=== PATIENT | female | born 1955 | race Caucasian/White ===

== ENCOUNTER → 2020-01-09 15:03 | Outpatient (CLI) | payer BC, SELFPAY ==
--- NOTE | ~2020-01-09 | US_ITS ---
EXAMINATION: US transvaginal DATE: 01/09/2020 15:30 INDICATION: Postmenopausal bleeding. Comparison:No prior studies for comparison. TECHNIQUE: Multiple transabdominal and endovaginal sonographic images of the pelvis performed. FINDINGS: The uterus measures 9.4 x 4.8 x 6.5 cm. The endometrial complex measures 1.9 cm with hetero geneous appearance. There are multiple small hypoechoic masses in the uterus, likely uterine fibroids measuring up to 1.8 cm. The ovaries are not visualized. There is no free fluid in the pelvis. There are no abnormal masses seen on either side. IMPRESSION: 1. Thickened endomtrial complex. The differential diagnosis includes endometrial hyperplasia, polyp a nd carcinoma. Biopsy is recommended. Reviewed, dictated and finalized at location A. IMPRESSION: 1. Thickened endomtrial complex. The differential diagnosis includes endometria l hyperplasia, polyp and carcinoma. Biopsy is recommended.
== END ==
PROVIDERS: Visit Provider Nurse Practitioner
DX: N95.0 Postmenopausal bleeding (principal)
CPT/HCPCS: 76830

== ENCOUNTER → 2020-01-17 09:32 | Outpatient (REF) | payer BC, SELFPAY | LOC: ANHLAB 09:32 | PROVIDERS: Visit Provider Nurse Practitioner | DX: D49.2 Neoplasm of unspecified behavior of bone, soft tissue, and skin (principal) | CPT/HCPCS: 88305 ==

== ENCOUNTER 2020-06-22 15:38 | Outpatient (CLI) | payer BC, SELFPAY ==
--- NOTE | ~2020-06-22 | XR_ITS ---
EXAMINATION: XR chest 2V 06/22/2020 15:58 INDICATION: Shortness of breath with exertion. COPD. Asthma. PROCEDURE: 2 view chest COMPARISON: 06/27/2017 FINDINGS: The lungs are clear. The cardiomediastinal silhouette is within normal limits. There are no pleural effusions. There is no pneumothorax suspected. IMPRESSION: 1: NO ACUTE CARDIOPULMONARY DISEASE. Reviewed, dictated and finalized at location A. 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
== END 2020-06-22 15:39 | disposition home or self-care (01) ==
LOC: ANHIMG 15:44
PROVIDERS: Visit Provider Nurse Practitioner Family
DX: R06.02 Shortness of breath (principal)
CPT/HCPCS: 71046

== ENCOUNTER 2020-08-01 08:01 | Outpatient (CLI) | payer BC, SELFPAY ==
--- NOTE | 2020-08-03 12:46 | WPDPFTINT ---
PFT Interpretation PFT Interpretation: This PFT met all criteria for ATS standards and reproducibility FEV/FVC 72% FEV1 100% FVC 94% FEF 25-75% 55% TLC 102% RV112% RV/TLC 42% DLCO 67% when adjusted for alveolar volume but not adjusted for hemoglobin Flow volume loops showed some expiratory coving Impression: Probable mild small airflow obstruction with mildly decreased diffusion capacity. This pattern may be suggestive of asthma or COPD. Clinical correlation is advised.
== END 2020-08-01 08:02 | disposition home or self-care (01) ==
PROVIDERS: Visit Provider Nurse Practitioner Family
DX: J44.9 Chronic obstructive pulmonary disease, unspecified (principal); J45.909 Unspecified asthma, uncomplicated
CPT/HCPCS: 94060; 94726; 94729

== ENCOUNTER 2020-08-28 08:00 | Outpatient (CLI) | payer BC, SELFPAY ==
--- NOTE | ~2020-08-28 | NM_ITS ---
EXAMINATION: NM stress w perf spect multi EXAM DATE: 08/28/2020 11:50 INDICATION: R06.00 - Dyspnea, unspecified. Ischemic chest pain. TECHNIQUE: Rest images were obtained following intravenous administration of 9.8 mCi Tc99m tetrofosmi n (Myoview). The patient was infused intravenously with Lexiscan (regadenoson). Then, 28.9 mCi Tc99m tetrofosmin (Myoview) was administered intravenously, and stress images were obtained. Data was recon structed into short axis and horizontal and vertical long axis SPECT images. Gated SPECT images were also obtained. Correlation is made to chest x-ray 06/22/2020. FINDINGS: There is no reversible or fixed perfusion abnormality to suggest ischemia or infarction. Th ere is normal left ventricular wall motion. End diastolic volume: 92 mL. End-systolic volume: 31 mL. Left ventricular ejection fraction: 66%. IMPRESSION: 1. Normal myocardial perfusion at rest and during stress. 2. Left ventricular ejection fraction measuring 66%. Reviewed, dictated and finalized at location B. RER ELECTROPLATING
--- NOTE | 2020-08-28 08:12 | EST_ITS ---
Patient Info Name: Bernie Olivera Age: 64 years : 1955 Gender: Female Ht: 62 in Wt: 249 lbs BSA: 2.29 m2 Exam Date: 08/28/2020 9:20 AM Exam Location: [facility] Stress Patient Status: Outpatient Admit Date: 08/28/2020 Staff Ordering Physician: Feroz Turpin APRN Attending Provider: Feroz Turpin APRN Exercise Technologist: Cathleen Cuellar RDCS Exercise Physician: Alex Harley DO Exam Type: CA stress test treadmill w NM Study Info Indications R06.02 - Shortness of breath R07.9 - Chest pain, unspecified A nuclear stress test was performed. Summary 1. 1. Negative Derick exercise stress test for ischemic ST changes by ECG criteria. 2. 2. Reduced functional capacity, achieving 4.7 METs of workload. 3. 3. Appropriate HR response to exercise. 4. 4. Appropriate HR recovery at 1 minute post exercise. 5. 5. Nuclear scan to follow and will be reported separately. Please correlate with it. 6. 6. Patient informed of the above results. Protocol: Derick Stress ECG Details Stage: REST Duration (min): 7 min : 42 sec Speed (mph): 0.0 Grade (%): 0 HR (bpm): 67 SBP (mmHg): 128 DBP (mmHg): 85 METS: --- Stage: REST Duration (min): 12 min : 17 sec Speed (mph): 0.0 Grade (%): 0 HR (bpm): 75 SBP (mmHg): 128 DBP (mmHg): 85 METS: --- Stage: STAGE 1 Duration (min): 1 min : 0 sec Speed (mph): 1.7 Grade (%): 10 HR (bpm): 112 SBP (mmHg): 128 DBP (mmHg): 85 METS: --- Stage: STAGE 1 Duration (min): 2 min : 0 sec Speed (mph): 1.7 Grade (%): 10 HR (bpm): 141 SBP (mmHg): 128 DBP (mmHg): 85 METS: --- Stage: STAGE 1 Duration (min): 3 min : 0 sec Speed (mph): 1.7 Grade (%): 10 HR (bpm): 143 SBP (mmHg): 165 DBP (mmHg): 98 METS: --- Stage: RECOVERY Duration (min): 0 min : 59 sec Speed (mph): 0.0 Grade (%): 0 HR (bpm): 125 SBP (mmHg): 201 DBP (mmHg): 91 METS: --- Stage: RECOVERY Duration (min): 1 min : 59 sec Speed (mph): 0.0 Grade (%): 0 HR (bpm): 100 SBP (mmHg): 201 DBP (mmHg): 91 METS: --- Stage: RECOVERY Duration (min): 2 min : 59 sec Speed (mph): 0.0 Grade (%): 0 HR (bpm): 96 SBP (mmHg): 181 DBP (mmHg): 84 METS: --- Stage: RECOVERY Duration (min): 3 min : 59 sec Speed (mph): 0.0 Grade (%): 0 HR (bpm): 87 SBP (mmHg): 181 DBP (mmHg): 84 METS: --- Stage: RECOVERY Duration (min): 4 min : 59 sec Speed (mph): 0.0 Grade (%): 0 HR (bpm): 80 SBP (mmHg): 137 DBP (mmHg): 83 METS: --- Stage: RECOVERY Duration (min): 5 min : 59 sec Speed (mph): 0.0 Grade (%): 0 HR (bpm): 83 SBP (mmHg): 137 DBP (mmHg): 83 METS: --- Stage: RECOVERY Duration (min): 6 min : 49 sec Speed (mph): 0.0 Grade (%): 0 HR (bpm): 81 SBP (mmHg): 138 DBP (mmHg): 82 METS: --- Rest HR: 75 bp
== END 2020-08-28 08:01 | disposition home or self-care (01) ==
LOC: ANHCARD 08:03
PROVIDERS: Visit Provider Nurse Practitioner Family
DX: R06.00 Dyspnea, unspecified (principal); R07.9 Chest pain, unspecified
CPT/HCPCS: 78452; 93017; A9502

== ENCOUNTER → 2023-01-23 15:39 | Outpatient (CLI) | payer BC, SELFPAY ==
--- NOTE | ~2023-01-23 | DEXA_ITS ---
Bone Density Report Name: MERLENE ROUSE Age: 67 Sex: Female Ethnicity: White Date of : 1955 Indication: postmenopausal; screening for osteoporosis; height loss; asthma or emphysema; hysterectomy; Referring Provider: DAMIAN MCKEON Study: Bone densitometry was performed. Exam Date: January 23, 2023 Accession number: [id number] Bone Density: Region BMD T-score Z-score Classification AP Spine (L1, L2) 1.316 3.1 4.7 Normal Femoral Neck (Left) 0.873 0.2 1.7 Normal Total Hip (Left) 1.094 1.2 2.5 Normal Femoral Neck (Right) 0.877 0.2 1.8 Normal Total Hip (Right) 1.133 1.6 2.8 Normal Total Hip Mean 1.114 1.4 2.7 Normal World Health Organization criteria for BMD impression classify patients as: Normal (T-score at or above -1.0), Osteopenia (T-score between -1.0 and -2.5), or Osteoporosis (T-score at or below -2.5). 10-year Fracture Risk: FRAX not reported because: All T-scores for Spine Total, Hip Total, Femoral Neck at or above -1.0 Clinical Information Provided by Patient: Has used the following medications: Vitamin D Has the following medical conditions: Asthma or Emphysema, Hysterectomy Patient maximum height was 64 Menopause Age: 58 Does not regularly consume dairy products Drinks caffeinated beverages Onset of menses at age 15 Number of children 1 Impression: The patient has normal bone mass. Discussion: BONE DENSITY IS ABOVE THE MINIMUM DESIRABLE LEVEL AT ALL SKELETAL SITES TESTED. This patient?s bone mineral density is above the minimum desirable level (T-score -1.0 or better) at all sites measured. The patient should follow a healthful lifestyle (good nutrition with adequate calcium and vitamin D, and appropriate weight-bearing exercise). Follow-Up: Consider repeating this study in 5 years or sooner if there is some new clinical indication. Reported by: [facility] on 01/23/2023 4:09:00 PM. Reviewed, dictated and finalized at location AMakenna WOODS
== END ==
PROVIDERS: PCP Nurse Practitioner; Visit Provider Obstetrics & Gynecology Gynecology
DX: Z78.0 Asymptomatic menopausal state (principal)
CPT/HCPCS: 77080

== ENCOUNTER 2023-11-04 08:41 | Outpatient (CLI) | payer BC, SELFPAY ==
--- NOTE | 2023-11-17 15:14 | WPDSLEEPSTUD ---
Sleep Study Date of Study: 11/04/23 Ordering Provider: Feroz Turpin APRN Interpreting Physician: Rocio Dumont DO Sleep Study Type: Polysomnogram Height: 1.6 m Weight: 92.533 kg Body Mass Index: 36.1 Neck Circumference (inches): 15 Blanchard: 7 Reason for Sleep Study Re-evaluation for JAMAL after weight loss Sleep History The patient is a 67-year-old female with hypertension, Alvaro's thyroiditis, irritable bowel syndrome, obesity, asthma and JAMAL on CPAP that had a sleep study ordered by the Pulmonary group to re-evaluate 4 sleep apnea. The patient has had difficulty tolerating PAP therapy and has lost weight recently. The patient rarely awakens from sleep short of breath. She rarely awakens at night with heartburn, belching or cough. She occasionally snores but it is rarely loud enough that others complain. She occasionally grinds her teeth during sleep. She rarely is bothered by pain during the day and rarely awakened by pain during the night. She rarely wakes up feeling stiff in the morning. She rarely wakes up with sore or achy muscles. She occasionally wakes up with pain in the neck, spine and other joints. She goes to bed at 10:00 p.m. on weekdays and at 10:45 a.m. p.m. on the weekends. She is able to fall asleep within a few minutes. She wakes up several times throughout the night for unknown reasons and is able to fall back asleep relatively quickly. She wakes up at 4:30 a.m. on weekdays and at 5:30 a.m. on the weekends. She typically gets 6 hours of sleep per night. She will stay in bed for 10-15 minutes after waking up in the morning. She currently lives with her adult son. She denies consuming any caffeinated beverages within 2 hours of bedtime. She will engage in physical exercise before bedtime. She will watch television before falling asleep. She denies taking naps in afternoon or the evening. She consumes 2-3 cups of coffee per day. She denies tobacco, alcohol and recreational drug use. [facility] Past Medical History Medical History Essential hypertension Alvaro's thyroiditis IBS (irritable bowel syndrome) Obesity Shingles Sleep apnea Family History Family History Sibling Hypertension Mother Family history of chronic obstructive pulmonary disease Family history of malignant neoplasm of breast Family history of coronary artery disease Family history of congestive heart failure Father Family history of pancreatic cancer Social History Social History Smoking status: Never smoker Alcohol intake: current Medications Home Medications Medication Instructions Recorded Confirmed Type alosetron 1 mg tablet (Lotronex) 1 mg PO DAILY 07/11/19 08/13/23 History dicyclomine 10 mg capsule 10 mg PO BID 07/11/19 08/13/23 History fluticasone propionate 50 1 spray intranasal DAILY 07/11/19 08/13/23 History mcg/actuation nasal spray,suspension (Flonase Allergy Relief) levothyroxine 200 mcg tablet 200 mcg PO DAILY 07/11/19 08/13/23 History (Synthroid) cholecalciferol (vitamin D3) PO 01/17/20 08/13/23 History losartan 50 mg-hydrochlorothiazide 1 tablet PO DAILY 01/17/20 08/13/23 History 12.5 mg tablet atorvastatin 20 mg tablet 20 mg PO DAILY 02/04/21 08/13/23 History albuterol sulfate 90 mcg/actuation 1 inh inhalation Q4-6H PRN 06/10/21 08/13/23 Rx aerosol inhaler (ProAir HFA) shortness of breath or wheezing #8.5 grams semaglutide 1 mg/dose (2 mg/1.5 1 mg subcut WEEKLY 08/14/22 08/13/23 History mL) subcutaneous pen injector (Ozempic) fluticasone fur. 100 mcg-umeclid 1 inh inhalation Q24H #60 ea 01/27/23 08/13/23 Rx 62.5 mcg-vilant 25 mcg inhalat.powder (Trelegy Ellipta) montelukast 10 mg tablet See Rx Instructions .Route 04/23/23 08/13/23 Rx .COMPLEX #3
[2023-11-17 15:17] VITALS: BMI 36.1
== END 2023-11-05 06:17 | disposition home or self-care (01) ==
LOC: ANHCSM 08:41
PROVIDERS: PCP Nurse Practitioner; Visit Provider Nurse Practitioner Family
DX: G47.30 Sleep apnea, unspecified (principal); G47.33 Obstructive sleep apnea (adult) (pediatric)
CPT/HCPCS: 95810

== ENCOUNTER 2024-02-09 16:21 | Outpatient (CLI) | payer BC, SELFPAY ==
--- NOTE | ~2024-02-09 | XR_ITS ---
EXAM: XR shoulder RT min 2V DATE: 02/09/2024 16:30 HISTORY: weightlifting injury hurts to raise arm for 1 month . COMPARISON: None available. FINDINGS: Normal mineralization. No fracture or dislocation. No lytic or blastic lesion. Mild AC mary nt hypertrophy. Amorphous calcification in the rotator cuff. No erosion or periosteal change. Soft ti ssues within normal limits. IMPRESSION: Mild AC joint osteoarthritis. Rotator cuff calcific tendinitis. Reviewed, dictated and finalized at location K.
== END 2024-02-09 16:22 ==
LOC: MICIMG 16:22
PROVIDERS: PCP Chiropractor; Visit Provider Chiropractor
DX: M75.21 Bicipital tendinitis, right shoulder (principal); M19.011 Primary osteoarthritis, right shoulder
CPT/HCPCS: 73030

== ENCOUNTER 2024-07-04 09:36 | Outpatient (CLI) | payer BC, SELFPAY ==
--- NOTE | ~2024-07-04 | MR_ITS ---
EXAMINATION: MR knee RT wo con DATE: 07/04/2024 10:18 INDICATION: Right knee pain TECHNIQUE: Magnetic resonance imaging (MRI) of the right knee was performed without intravenous contr ast. Sequences included coronal PD-weighted FSE, coronal PD-weighted FS FSE, sagittal T2-weighted FS E, sagittal PD-weighted FS FSE and axial PD weighted fat saturated FSE. COMPARISON: Right knee radiographs dated 06/23/2024 FINDINGS: Medial compartment: Full-thickness radial tear at the posterior horn of the medial meniscus. Shallow chondral surface irr egularity along the anterior to central weightbearing medial femoral condyle. Articular cartilage danielle ng the medial tibial plateau is normal. Lateral compartment: Lateral meniscus is normal. Articular cartilage is normal. Patellofemoral compartment: Deep chondral ulceration without degenerative subchondral changes at the central aspect patellar apic al ridge and immediately adjacent lateral aspect of the medial facet. Mild partial-thickness chondral fissuring at the lateral patellar facet. Additional region of deep chondral ulceration with subtle u nderlying cortical irregularity at the central to inferior aspect of the medial trochlea and trochlea r groove. Ligaments and tendons: Anterior and posterior cruciate ligaments are normal. The medial collateral ligament is normal. Mild thickening and increased signal at the proximal fibular collateral ligament without surrounding edema consistent with mild scarring related to chronic sprain. The extensor mechanism is normal. The visua lized medial and lateral hamstring tendons as well as the iliotibial band are normal. Fluid: Physiologic amount of fluid in the joint space. No loose osteochondral bodies identified. Osseous/other: Small intraosseous ganglion cyst at the anterior tibial situated between the footplates of the anteri or horn of the medial meniscus and anterior cruciate ligament. Normal marrow signal. No fracture or p athologic marrow replacing process. IMPRESSION: 1. Full-thickness radial tear at the posterior root of the medial meniscus. 2. 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 Reviewed, dictated and finalized at location B. 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 Full-thickness radial tear at the posterior root of the medial meniscus. 2. 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
== END 2024-07-04 09:37 | disposition home or self-care (01) ==
LOC: GOSHIMG 09:37
PROVIDERS: PCP Internal Medicine; Visit Provider Nurse Practitioner Family
DX: S83.231A Complex tear of medial meniscus, current injury, right knee, initial encounter (principal); M17.11 Unilateral primary osteoarthritis, right knee; M94.261 Chondromalacia, right knee; X58.XXXA Exposure to other specified factors, initial encounter
CPT/HCPCS: 73721

== ENCOUNTER 2024-12-08 10:30 | Outpatient (RCR) | payer BC, SELFPAY | END 2024-12-08 12:10 | disposition home or self-care (01) | LOC: ANHDMC 10:30 | PROVIDERS: PCP Internal Medicine; Visit Provider Nurse Practitioner Family | DX: E11.9 Type 2 diabetes mellitus without complications (principal); Z71.89 Other specified counseling | CPT/HCPCS: G0108 ==

== ENCOUNTER 2025-06-18 09:50 | Emergency (ER) | payer BC, SELFPAY ==
--- NOTE | ~2025-06-18 | CT_ITS ---
CT abdomen pelvis w con Clinical History: R flank pain, n/v x2wk . Comparison: None Technique: Axial images lung bases to symphysis pubis IV contrast information not listed in PACS Coronal, sagittal reformats CT images acquired with automatic exposure control for dose reduction DLP: 865 mGy-cm Findings: Lung bases: Clear. Visualized heart and pericardium: Unremarkable. Liver: Steatosis. Gallbladder: Unremarkable. Spleen: Unremarkable. Pancreas: Unremarkable. Adrenal glands: Unremarkable. Kidneys: Right kidney- No hydronephrosis. 2 mm stone. Left kidney- No hydronephrosis. No renal stones. Retroaortic renal vein. Distal esophagus/stomach: Gastric antral wall thickening likely underdistention. Small bowel loops: Normal caliber and wall thickness. Terminal ileal diverticula. Colon: Diverticula. Distal wall thickening but under distended. Normal RLQ appendix. Nodes: No enlarged nodes. Peritoneum: No ascites. No free air. Urinary bladder: Unremarkable. Uterus: Removed. Adnexa: No masses. Bones: No acute bony abnormality. Soft tissues: Unremarkable. Aorta: No aneurysm or dissection. IVC: Unremarkable. Main portal vein/SMV/splenic vein: Patent. IMPRESSION: 1. 2 mm stone right kidney. No hydronephrosis. 2. Mild colitis not excluded. 3. No other acute abnormality. Reviewed, dictated and finalized at location R. INE TENDER
[2025-06-18 09:55] VITALS: BP 167/90; PULSE 93; RESP 20; TEMP 36.8; O2SAT 100
--- OUTSIDE RECORDS SUMMARY | 2025-06-18 10:14 | XMS_ITS | Clinical Summary ---
Author Organization [facility] Address [address] [place] [address] Care Team Providers Care Advertising Operations Manager Name Role Phone Rocio Whitlock MD Primary Care Provider [phone] Source Comments [facility],non-owned Affiliates and Associated Physician Practices is amultiple site organization consisting of ambulatory clinics and hospital sitesin [place], [place], [place] and [place]. This disclosure is being madepursuant to the Care Everywhere program and may not contain all information available regarding this patient. Last updated 18.[facility] Allergies Active Allergy Reactions Criticality Noted Date Comments Amlodipine Base Other Low 02/15/2013 LOWER EXTREMITY SWELLING Cefaclor Unknown 11/28/2004 Ephedrine Unknown 10/22/2009 Erythromycin Rash,Urticaria Medium 11/28/2004 Lisinopril Cough Low 02/18/2011 Metformin Diarrhea,GI Discomfort Low 05/08/2022 Metoprolol Nausea and/or Vomiting Low 11/28/2004 Penicillin G Rash Medium 11/28/2004 Sulfamethoxazole Rash Medium 08/31/2006 Sulfamethoxazole W-Trimethoprim Urticaria Medium 07/13/2007 Trimethoprim Unknown 08/31/2006 Medications * Be aware that medications may not be up to date on this document. Alwaysverify current medications with the patient. acetaminophen (Tylenol) 500 MG capsule Take 2 (two) capsules by mouth every 6 hours as needed Active Alosetron HCl 1 MG Take 1 mg by mouth every morning Active atorvastatin (Lipitor) 40 MG tablet Take 1 (one) tablet by mouth once daily 2 Active Calcium Citrate-Vitami n D 500-10 MG-MCG CHEW Take 1 tablet by mouth at bedtime Active cycloSPORINE (Restasis) 0.05 % ophthalmic suspension Instill 1 (one) drop into both eyes 2 times daily 3 Active famotidine (Pepcid) 10 MG tablet Take 1 (one) tablet by mouth 2 times daily as needed Active fluticasone propionate (Flonase) 50 MCG/ACT nasal spray [place] 1 (one) spray into each nostril once daily 3 Active Trelegy Ellipta 100-62.5-25 MCG/ACT Inhale 1 (one) puff by mouth once daily 3 Active guaiFENesin ER 12hr (Mucinex) 600 MG tablet Take 1 (one) tablet by mouth as needed Active Synthroid 200 MCG tablet Take 1 (one) tablet by mouth once daily 2 Active losartan-hydro CHLOROthiazide (Hyzaar) 100-25 MG tablet Take 1 (one) tablet by mouth once daily 2 Active montelukast (Singulair) 10 MG tablet Take 1 (one) tablet by mouth every evening 3 Active semaglutide (Ozempic) 2 MG/1.5ML pen Inject 1 (one) mg subcutaneously every 7 days Active Family History Medical History Relation Name Comments Cancer - Pancreatic Father CAD (Coronary Artery Disease) Mother COPD - Chronic Obstructive Pulmonary Disease Mother Cancer - Breast Mother Relation Name Status Comments Father Mother Social History Tobacco Use Types Packs/Day Years Used Date Smoking Tobacco: Never Smokeless Tobacco: Never Tobacco Cessation:Counseling Given: Not Answered Alcohol Use Standard Drinks/Week Comments Yes 1 (1 standard drink = 0.6 oz pur e alcohol) less than weekly Comments Unknown Sex and Gender Information Value Date Recorded Sex Assigned at Not on file Legal Sex Female 5: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 Gender Identity Not on file Sexual Orientation Not on file Last Filed Vital Signs Vital Sign Reading Time Taken Comments Blood Pressure 154/75 09/11/2022 12:09 PM [employer] TECHNICAL LEAD SENIOR DEVELOPER Pulse 68 09/11/2022 12:09 PM CENT[employer] TECHNICAL LEAD SENIOR DEVELOPER Temperature 36.9 C (98.5 F) 09/11/2022 12:09 PM CENTUR[employer] TECHNICAL LEAD SENIOR DEVELOPER Respiratory Rate - - Oxygen Saturation 96% 09/11/2022 12:09 PM CENTUR[employer] TECHNICAL LEAD SENIOR DEVELOPER Inhaled Oxygen Concentration - - Weight 100.2 kg (221 lb) 09/11/2022 12:09 PM CENTUR[employer] TECHNICAL LEAD SENIOR DEVELOPER Height 160 cm (5' 3) 09/11/2022 12:09 PM CENTUR[employer] TECHNICAL LEAD SENIOR DEVELOPER Body Mass Index 39.15 09/11/2022 12:09 PM CENTUR[employer] TECHNICAL LEAD SENIOR DEVELOPER Plan of Treatment Health Maintenance Due Date Last Done Comments BONE DENSITY TESTING 1955 COLOGUARD (AGES 45-75) - COLON CA SCREENING 1955 COLON MONITORING 1955 COLONOSCOPY - COLON CA SCREENING 1955 CT COLONOGRAPHY - COLON CA SCREENING 1955 Colorectal Cancer Screening 1955 FIT - COLON CA SCREENING 1955 FLEX SIG - COLON CA SCREENING 1955 MAMMOGRAM 1955 HEPATITIS C SCREENING 12/13/1975 DTAP/TDAP/TD VACCINES (1 - Tdap) 1976 PNEUMOCOCCAL VACCINE 50+ (1 of 1 - PCV) 12/18/2007 ZOSTER VACCINE (1 of 2) 12/18/2007 SCREENING FOR DIABETES 09/11/2022 DEPRESSION SCREENING 07/06/2024 COVID-19 VACCINE ( season) 2025 04/15/2022, 10/29/2021, 04/17/2021, Additional history exists INFLUENZA VACCINE (#1) 2025 , 03/06/2022, 03/14/2021, Additional history exists Respiratory Syncytial Virus (RSV) Vaccine Pt: or over 60 yrs (1 - 1-dose 75+ series) 2032 HEPATITIS B VACCINE Aged Out No longe r eligible based on patient's age to complete this topic HIB VACCINE Aged Out No longer eligi ble based on patient's age to complete this topic HPV VACCINE Aged Out No longer eligi ble based on patient's age to complete this topic MENINGOCOCCAL (Group B) VACCINE SHARED DECISION-MAKING Aged Out No longer eligible based on patient's age to complete this topic MENINGOCOCCAL GROUPS A/C/Y/W VACCINE Aged Out No longer eligible based on patient's age to complete this topic Insurance Care Teams Advertising Operations Manager Relationship Specialty Start Date End Date Rocio Whitlock MD [address] [place] [address] [phone] PCP - General 09/11/22
--- OUTSIDE RECORDS SUMMARY | 2025-06-18 10:14 | XMS_ITS | Clinical Summary ---
Author Organization [place] [id number] Address [address] [place] [address] Care Team Providers Care Retail Sales Consultant Name Role Phone Rocio Whitlock MD Primary Care Provider [phone] Beverly Muhammad MD Unavailable [phone] Nanda Toure MD Unavailable [phone] Allergies Active Allergy Reactions Criticality Noted Date Comments Amlodipine Other (See comments) Low 02/15/2013 LOWER EXTREMITY SWELLING Cefaclor Unknown 11/28/2004 Ephedrine Unknown 10/22/2009 Erythromycin Rash,Urticaria Medium 11/28/2004 Lisinopril Cough Low 02/18/2011 Metformin Diarrhea,Stomach upset Low 05/08/2022 Metoprolol Nausea And Vomiting Low 11/28/2004 Metoprolol Succinate Nausea & Vomiting Low 11/29/19 05 Penicillin G Rash Medium 11/28/2004 Sulfamethoxazole Rash,Palpitations Medium 08/31/2006 Sulfamethoxazole-Trimethop rim Urticaria Medium 07/13/2007 Trimethoprim Urticaria,Palpitat ions Medium 08/31/2006 Medications fluticasone propionate (FLONASE) 50 mcg/actuation nasal sprayIndications :Allergic Rhinitis Administer 2 sprays into affected nostril(s) nightly 8 Active guaiFENesin ER (MUCINEX) 600 mg 12 hr tablet Take 1 tablet (600 mg total) by mouth every 12 (twelve) hours as needed for cough or congestion Active albuterol HFA (PROVENTIL HFA,VENTOLIN HFA,PROAIR HFA) 90 mcg/actuation inhaler Inhale 1 puff every 6 (six) hours as needed for wheezing or shortness of breath 6 9 Active alosetron (LOTRONEX) 1 mg tabletIndication s:Diarrhea Predominant Irritable Bowel Syndrome Take 1 tablet (1 mg total) by mouth every morning Active cholecalciferol (VITAMIN D-3) 1,000 unit (25 mcg) tabletIndication s:Vitamin D Deficiency Take 1 tablet (1,000 Units total) by mouth nightly Active SYNTHROID 200 mcg tabletIndication s:hypothyroidism Take 1 tablet (200 mcg total) by mouth every morning 3 9 Active losartan-hydroch lorothiazide (HYZAAR) 100-25 mg per tabletIndication s:hypertension Take 1 tablet by mouth every morning 2 9 Active montelukast (SINGULAIR) 10 mg tabletIndication s:Maintenance Therapy for Asthma Take 1 tablet (10 mg total) by mouth nightly 0 Active Restasis 0.05 % ophthalmic emulsionIndicati ons:dry eye Administer 1 drop into both eyes every 12 (twelve) hours 0 Active acetaminophen (TYLENOL) 325 mg tabletIndication s:Pain Take 2 tablets (650 mg total) by mouth every 6 (six) hours as needed (pain) Active famotidine (PEPCID) 10 mg tablet Take 1 tablet (10 mg total) by mouth 2 (two) times a day as needed for heartburn Active azelaic acid 15 % gelIndications:A cne Rosacea Apply 1 Application topically nightly 0 Active metroNIDAZOLE (METROGEL) 1 % gelIndications:A cne Rosacea Apply 1 Application topically daily as needed 0 Active fluticasone-umec lidin-vilanter (TRELEGY ELLIPTA) 100-62.5-25 mcg inhalerIndicatio ns:Bronchospasm Prevention with COPD,Maintenance Therapy for Asthma Inhale 1 puff daily before breakfast 1 Active atorvastatin (LIPITOR) 40 mg tabletIndication s:hyperlipidemia Take 1 tablet (40 mg total) by mouth nightly 2 Active omega-3 fatty acids-fish oil 300-1,000 mg capsuleIndicatio ns:health Take 2 capsules (2 g total) by mouth daily before breakfast Active magnesium gluconate 200 mg tablet Take 1 tablet (200 mg total) by mouth nightly as needed (muscle cramps) Active methylcellulose oral powder Take 1 packet by mouth daily as needed (IBS) Active Ozempic 1 mg/dose (4 mg/3 mL) pen injector injection INJECT 1 MG UNDER SKIN EVERY WEEK 4 Active OneTouch Delica Plus Lancet 30 gauge misc USE TO CHECK BLOOD SUGARS EVERY DAY 4 Active OneTouch Verio test strips strip USE TO TEST EVERY DAY 4 Active Ozempic 2 mg/dose (8 mg/3 mL) pen injector injection 5 Active Gelsyn-3 16.8 mg/2 mL 5 Active estradioL (ESTRACE) 0.01 % (0.1 mg/gram) vaginal creamIndications :Atrophic Vaginitis associated with Menopause Apply one (1) gram in the vagina two to three (2-3) nights a week 42.5 g 3 5 Active Active Problems Problem Noted Date Diagnosed Date Abnormal findings on dx imaging of prt digestive tract 12/13/2024 Asthma 12/13/2024 Bloating 12/13/2024 Change in bowel habit 12/13/2024 Heartburn 12/13/2024 Intestinal infection due to Clostridium difficil e 12/13/2024 Melena 12/13/2024 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 DARIN Menonote provided. Patient would like to proceed with local vaginal estrogen. Vagifem Rx sent to pharmacy. Will switch to other formulation pending insurance coverage. Options discussed. She will follow up with any concerns. First degree hemorrhoids 01/25/2024 Diverticulosis of large inte neri without perforation or abscess without bleeding 01/25/2024 Polyp of colon 01/25/2024 Pain due to varicose veins of both lower extremi ties 11/14/2022 Incarcerated incisional hernia 11/12/2022 Irritable colon 05/12/2022 Stage 3a chronic kidney disease 05/12/2022 Hypercholesterolemia 11/01/2020 Morbid obesity 02/13/2020 Complex atypical endometrial hyperplasia 020 Acquired hypothyroidism 02/13/2020 Thyroid disease 02/13/2020 JAMAL on CPAP 02/13/2020 Abdominal distension (gaseous) 10/13/2017 Esophageal reflux 10/22/2015 Hypertension 06/14/2013 Chronic obstructive pulmonary disease 11/09/2012 Vitamin D deficiency 10/29/2011 Allergic rhinitis 05/20/2004 Immunizations Immunization Administration Dates Next Due Influenza, Quadrivalent, Bonnie l Culture-based MDCK, Preservative Free, Antibiotic Free, Intramuscular 04/25/2020 Influenza, Quadrivalent, Rec ombinant, Egg Free, Preservative Free, Intramuscular 03/14/2021 Influenza, Quadrivalent, Spl it, Intramuscular 04/12/2020,04/08/2017 Influenza, Quadrivalent, Spl it, Preservative Free, Intramuscular 03/06/2022,04/09/2018,03/15/2014 Influenza, Trivalent, IM (MDV) 04/05/2013 Pfizer SARS-CoV-2 Monovalent Vaccination (12+ Yrs) PURPLE 10/29/2021,04/17/2021,07/12/2020,06/21 Pfizer Sars-Cov-2 Bivalent V accination (12+ YRS) 04/15/2022 Tdap 12/25/2021 ZOSTER Recombinant 08/22/2019 Surgical History Surgery Date Site/Laterality Comments COLONOSCOPY 07/06/2017 - 07/05/2018 WISDOM TOOTH EXTRACTION HYSTERECTOMY 03/06/2020 HERNIA REPAIR 07/06/2022 - 07/05/2023 Medical History Medical History Date Comments Fibroid uterus Hypothyroidism COPD (chronic obstructive pulmonary disease) HTN (hypertension) IBS (irritable bowel syndrome) GERD (gastroesophageal reflux disease) 09/2014 Asthma 08/2012 Cataract 07/2019 Diabetes mellitus History of underactive thyroid Obstructive sleep apnea Motion sickness Morbid obesity (HCC) Hyperlipidemia Family History Medical History Relation Name Comments Hypertension Brother Stroke Brother Heart disease Maternal Grandmother Breast cancer Mother Judi Angeloisaias COPD Mother Judi Angeloguybrett Early Mother Judi Angeloguying Heart disease Mother Judi Dinh Hypertension Mother Judi Dinh Osteoporosis Mother Judi Dinh Ovarian cancer Other Anesthesia problems Neg Hx Relation Name Status Comments Brother Maternal Grandmother Mother Judi Dinh Other Social History Tobacco Use Types Packs/Day Years Used Date Smoking Tobacco: Never Smokeless Tobacco: Never Tobacco Cessation:Counseling Given: Not Answered Alcohol Use Standard Drinks/Week Comments Yes 0 (1 standard drink = 0.6 oz pur e alcohol) RARELY AUDIT-C Answer Date Recorded Q1: How often do you have a drink containing alcohol? Never 12/13/2024 Q2: How many drinks containi ng alcohol do you have on a typical day when you are drinking? Patient does not drink Q3: How often do you have si x or more drinks on one occasion? Never 12/13/2024 Personal Safety Answer Date Recorded Have you ever been in or are you currently in a harmful physical or emotional relationship or is someone making you feel afraid or unsafe? Denies 04/23/2023 Comments No Sex and Gender Information Value Date Recorded Sex Assigned at Not on file Legal Sex Female 8:00 PM PATIENT SAFETY TECH Gender Identity Not on file Sexual Orientation Not on file Obstetrics History Para Term AB IAB SAB Ectopic Multiple Livin g Live Births 1 1 1 1 1 Date Outcome GA Total Labor Labor/2nd/3rd Weight Sex Type Anes PTL Linnea A1 A5 Name Clin 1994 Term 3.005 kg (6 lb 10 oz) Vag-S pont Living Complications:None Last Filed Vital Signs Vital Sign Reading Time Taken Comments Blood Pressure 131/79 12/13/2024 10:23 AM CDT Pulse 78 09/27/2024 2:14 PM CDT Temperature 36.6 C (97.9 F) 05/27/2024 9:58 AM PATIENT SAFETY TECH Respiratory Rate 16 05/27/2024 9:58 AM PATIENT SAFETY TECH Oxygen Saturation 95% 05/27/2024 9:58 AM PATIENT SAFETY TECH Inhaled Oxygen Concentration - - Weight 93 kg (205 lb) 12/13/2024 10:23 AM CDT Height 160 cm (5' 3) 12/13/2024 10:23 AM CDT Body Mass Index 36.31 12/13/2024 10:23 AM CDT Plan of Treatment Health Maintenance Due Date Last Done Comments Albumin Creatinine Ratio, Urine 1955 Colon Cancer Screening-Colonoscopy 1955 Depression Screening 1955 Hepatitis C Screening 1955 eGFR 1955 Dilated Eye Exam 1957 Foot Exam 1955 Hepatitis B Screening 12/18/1975 Pneumococcal vaccine 65+ (1 of 2 - PCV) 1976 Zoster Vaccine (2 of 2) 10/17/2019 08/22/2019 Hemoglobin A1C 09/10/2020 03/13/2020 Fall Risk Assessment 04/23/2024 04/23/2023 Covid-19 Vaccine ( - 2024-2 6 season) 2025 04/15/2022, 10/29/2021, 04/17/2021, Additional history exists Influenza Vaccine (#1) 2025 , 03/31/2023, 03/06/2022, Additional history exists Breast Cancer Screening-Mammogram 12/01/2025 12/01/2024, 11/26/2023, 11/24/2022, Additional history exists Well Visit 65+ 12/13/2025 12/13/2024, 04/18/2019 Lipid Panel 12/22/2025 12/22/2024, 01/04/2024 Osteoporosis Screening-Bone Density Scan 02/23/2027 02/23/2025 DTaP/Tdap/Td Vaccine (2 - Td or Tdap) 12/26/2031 12/25/2021 Medical Devices Implanted Type Area [employer] Supervisor Device Identifier Shelf Expiration Date Model / Serial / Lot [employer]/C R Bard [id number] Monofilament Soft Lightweight Low Profile Square - Sn/A - [id number] Implanted:Qty: 1 on 04/23/2023 by Carlitos Paul MD at [facility] Mesh N/A: Abdomen [employer]/C R Bard 10/31/2026 [id number] / N/A / [id number] Procedures Procedure Name Priority Date/Time Associated Diagnosis Comments DEXA TBS AXIAL SKELETON BONE DENSITY 1 OR MORE SITES Schedule Routine, Read Routine (OP Routine) 02/23/2025 9:26 AM CDT Encounter for well woman exam with routine gynecological exam SCREENING MAMMOGRAM BILATERAL W [place] Schedule Routine, Read Routine (OP Routine) 12/01/2024 2:14 PM CDT Screening mammogram, encounter for POCT HEMOGLOBIN A1C Routine 03/13/2020 10:08 AM CDT from Last 3 Months or Most Recently Relevant to Health Maintenance Results * Dexa TBS Axial Skeleton Bone Density 1 or more sites (02/23/2025 9:26 AM CDT) Anatomical Region Laterality Modality Wrist, Body N/A Radiographic Claudia ging Narrative 02/23/2025 2:28 PM CDT Patient Name: Bernie Olivera Date of : 1955 Date of scan: 02/23/2025 Bone mineral density was performed on a HoloFancred Discovery Densitometer. Based on machine cross-calibration and precision studies the least significant changes of this densitometer is 0.024 g/cm2 at the spine, 0.020 g/cm2 at the total proximal femur, and 0.014g/cm2 at the forearm. HISTORY: This is a 69 y.o. postmenopausal female with a history of asthma, thyroid disease, and vitamin D deficiency. She reports that she has never smoked. She has never used smokeless tobacco. Currently on treatment with vitamin D and current complaint of neck pain. INDICATIONS: Menopause status and vitamin D deficiency. FINDINGS: BONE MINERAL DENSITY OF THE LUMBAR SPINE Bone Mineral Density (BMD) of the lumbar spine was measured from L1-L4 and the average density was calculated to be 1.533 gm/cm2. This corresponds to a T-score (standard deviations from the mean of young adults) of 4.4. There is no previous study available for comparison. BONE MINERAL DENSITY OF THE PROXIMAL FEMUR Bone Mineral Density (BMD) of the left hip total was found to be 1.045 gm/cm2. This corresponds to a T-score standard deviations from the mean of young adults of 0.8. Femoral neck is 0.872 gm/cm2 with a T-score (standard deviations from the mean of young adults) of 0.2. There is no previous study available for comparison. SUMMARY: Bone mineral density is near the young adult normal mean with no increased risk for fracture. The lumbar spine Trabecular Bone Score is 1.355 which suggests normal bone microarchitecture, compared to the general population. Final decisions regarding diagnostic or therapeutic recommendations should include BMD, TBS, additional clinical risk factors as well the clinical context of the patient. Please see attached TBS results for further details. ADDITIONAL COMMENTS: Postmenopausal Women and Men Over 50: Diagnostic criteria: Osteoporosis: BMD at or below -2.5 T-score; Osteopenia (low bone mass): BMD between -1.0 and -2.5 T-score. If the patient has a history of a fragility fracture, a fracture that occurred with trauma equivalent to a fall from a standing position or less, then the diagnosis is osteoporosis regardless of bone density. The history and data sections of the bone mineral density scan were prepared by Paola Carolina)(CBDT)who is accredited by the International Society of Clinical Densitometry. The overall patient assessment and scan interpretation were performed by Papi Durham M.D who is certified by the International Society of Clinical Densitometry. [id number] Patricia Trejo NP IMG DXA PROCEDURES Final Result * Screening Mammogram Bilateral W [place] (12/01/2024 2:14 PM CDT) Anatomical Region Laterality Modality Breast Bilateral Mammography Narrative 12/02/2024 11:33 AM CDT Mammogram Technique: Bilateral Digital Breast Tomosynthesis, Bilateral C-view 2D Screening mammogram. Views obtained: bilateral craniocaudal and bilateral mediolateral oblique. Computer Aided Detection was performed. Mammogram Findings: The present examination has been compared to prior imaging studies performed at [facility] on 11/24/2022, 04/16/2023 and 11/26/2023. There are scattered areas of fibroglandular density. There is no suspicious abnormality in either breast. Impression: There is no mammographic evidence of malignancy. Annual screening mammography is recommended. OVERALL FINAL ASSESSMENT: BI-RADS CATEGORY 1: Negative. Procedure Note Beverly Johnson MD - 12/02/2024 Mammogram Technique: Bilateral Digital Breast Tomosynthesis, Bilateral C-view 2D Screening mammogram. Views obtained: bilateral craniocaudal and bilateral mediolateral oblique. Computer Aided Detection was performed. Mammogram Findings: The present examination has been compared to prior imaging studies performed at [facility] on 11/24/2022, 04/16/2023 and 11/26/2023. There are scattered areas of fibroglandular density. There is no suspicious abnormality in either breast. Impression: There is no mammographic evidence of malignancy. Annual screening mammography is recommended. OVERALL FINAL ASSESSMENT: BI-RADS CATEGORY 1: Negative. us Self Screening Mammogram IMG MAMMO PROCEDURES Fi nal Result * (ABNORMAL) POCT hemoglobin A1c (03/13/2020 10:08 AM CDT) Hgb A1C, POC 6.6(H) 4.0 - 6.0 % [facility] Est Average Gluc POC 143 mg/dL [facility] Comment: The ADA recommends reporting an estimated Average Glucose (eAG) with all Hemoglobin A1c results using the equation derived from a study of 507 normal and diabetic adults. Minority populations were underrepresented and children were not included. (Diabetes Care 31:6036-6465, 2008). The eAG is not equivalent to a fasting glucose. Blood specimen (specimen) 03/13/2020 10:08 AM CDT 03/13/2020 10:08 AM CDT [facility] Sarbjit Rahman MD POINT OF CARE TEST ORDER CLARK Final Result [facility] Department [place] [address] from Last 3 Months or Most Recently Relevant to Health Maintenance Insurance [facility] MEDICARE [facility] [employer] MEDIC[facility] Care Teams Retail Sales Consultant Relationship Specialty Start Date End Date Rocio Whitlock MD [address] [facility] [address] [place] [address] PCP - General 02/04/17 Beverly Muhammad MD [address] [place] [address] Referring Physician Gynecology 01/31/20 Nanda Toure MD [address] [place] [address] Surgeon Vascular Surgery 11/14/22
--- NOTE | 2025-06-18 10:17 | ECG_ITS ---
Test Date: 2025-06-18 10:37:08 Measurements Intervals [place] Rate: 72 P: 45 AL: 148 QRS: -10 QRSD: 104 T: 26 QT: 365 QTc: 400 Interpretive Statements SINUS RHYTHM DELAYED PRECORDIAL R/S TRANSITION LEFT VENTRICULAR HYPERTROPHY MINIMAL Q WAVES- HIGH LATERAL LEADS BORDERLINE ECG No previous ECG available for comparison Electronically Signed On 06-18-2025 15:39:35 [employer] by Alex Harley D.O.
[2025-06-18] MEDS: ONDANSETRON INJ 4 MG/2 ML VIAL IV PUSH (10:32)
[2025-06-18 10:34] LABS: Hematocrit 45.3 % (37.0-47.0); Hemoglobin 15.3 g/dL (12.0-15.0); Immature Granulocyte Percent A 0.3 % (0-0.5); Lymphocytes Absolute Auto 1.66 K/mm3 (0.9-3.2); Mean Corpuscular HGB Conc 33.8 g/dl (32-36); Mean Corpuscular Hemoglobin 32.3 pg (26-34); Mean Corpuscular Volume 95.8 fl (80-100); Nucleated Red Blood Cells Absolute Auto 0.000 K/mm3 (0.0-0.012); Nucleated Red Blood Cells Perc 0.0 % (0.0-0.2); Platelet Count Result 349 k/mm3 (150-375); Red Blood Count 4.73 M/mm3 (4.2-5.4); White Blood Count 14.7 K/mm3 (4.5-10.0)
[2025-06-18 10:35] LABS: Add Urine Microscopic? NO; Appearance Urine Clear (Clear); Glucose Urine UA Negative (Negative); Leukocyte Esterase Ur Negative LEU/UL (Negative); Nitrate Urine Negative (Negative); Specific Grav Ur 1.026 (1.001-1.035)
[2025-06-18] MEDS: MORPHINE SULFATE (*CRX) 4 MG/ML INJ IV PUSH (10:37)
[2025-06-18 11:00] LABS: Alanine Aminotransferase 39 U/L (6-35); Albumin Level 5.0 g/dL (3.5-5.1); Alkaline Phosphatase 69 U/L (38-126); Anion Gap 10 mmol/L (4-12); Aspartate Amino Transferase 37 U/L (14-36); Bilirubin,Total 0.8 mg/dL (0.2-1.3); Blood Urea Nitrogen 28 mg/dL (7-17); Calcium 10.6 mg/dL (8.4-10.2); Carbon Dioxide 23 mmol/L (22-30); Chloride 106 mmol/L (98-107); Estimated CRCL calculation 58 ml/min; Estimated Glomerular Filt Rate > 60; Glucose 118 mg/dL (65-110); Lipase 145 U/L (23-300); Potassium 4.1 mmol/L (3.4-5.0); Sodium 139 mmol/L (137-145); Total Protein 8.3 g/dL (6.3-8.2)
[2025-06-18 11:35] VITALS: BP 153/78; PULSE 73; RESP 18; TEMP 36.8; O2SAT 97
[2025-06-18 12:21] VITALS: BP 148/75; PULSE 86; RESP 19; TEMP 36.4; O2SAT 98
--- NOTE | 2025-06-18 14:10 | ED.BACK ---
HPI - Back Pain/Injury General Chief Complaint: Back Pain/Injury Stated Complaint: R FLANK PAIN,N/V Time Seen by Provider: 06/18/25 10:00 History of Present Illness HPI Narrative: For the past 2 weeks pt has had some pain to R flank, worst with certain movements, and last few days it's worsened with some n/v; no dysuria. Tried a massage which did help temporarily. Related Data Home Medications ?Medication ?Instructions ?Recorded ?Confirmed ?Last Taken ?Type alosetron 1 mg tablet (Lotronex) 1 mg PO DAILY 07/11/19 08/13/23 Unknown History fluticasone propionate 50 1 spray intranasal DAILY 07/11/19 08/13/23 Unknown History mcg/actuation nasal spray,suspension (Flonase Allergy Relief) levothyroxine 200 mcg tablet 200 mcg PO DAILY 07/11/19 08/13/23 Unknown History (Synthroid) cholecalciferol (vitamin D3) PO 01/17/20 08/13/23 Unknown History magnesium carb,citrate,oxide PO 03/30/24 Unknown History atorvastatin 40 mg tablet 40 mg PO DAILY 09/22/24 09/22/24 Unknown History cyclosporine 0.05 % eye drops in a 1 drp EACH EYE BID 09/22/24 09/22/24 Unknown History dropperette losartan 100 1 tablet PO DAILY 09/22/24 09/22/24 Unknown History mg-hydrochlorothiazide 25 mg tablet semaglutide 2 mg/dose (8 mg/3 mL) 2 mg subcut WEEKLY 09/22/24 09/22/24 Unknown History subcutaneous pen injector (Ozempic) Allergies Allergy/AdvReac Type Severity Reaction Status Date / Time amlodipine Allergy Unknown Swelling Verified 06/18/25 09:51 erythromycin base Allergy Unknown Rash Verified 06/18/25 09:51 Sulfa (Sulfonamide Allergy Unknown unk Verified 06/18/25 09:51 Antibiotics) metformin AdvReac Unknown Abdominal Verified 06/18/25 09:51 Pain Review of Systems Review of Systems: All systems reviewed & are unremarkable except as noted in HPI and below PMFSH Past Medical History Medical History (Updated 06/18/25 @ 12:19 by America Hubbard MD) Degenerative joint disease of knee Arthritis, midfoot Mobility poor Left foot pain Tear of meniscus of knee Right knee injury Rupture of proximal biceps tendon Right knee pain Knee injury Biceps tendonitis Hypothyroidism High cholesterol Shortness of breath Calcific tendonitis of right shoulder Diabetes Right shoulder pain JAMAL (obstructive sleep apnea) Shingles IBS (irritable bowel syndrome) Alvaro's thyroiditis Sleep apnea Obesity Asthma Chronic obstructive pulmonary disease, unspecified Essential hypertension JAMAL on CPAP Surgical History Surgical History H/O hernia repair H/O: hysterectomy Family History Family History Sibling Hypertension Mother Family history of chronic obstructive pulmonary disease Family history of malignant neoplasm of breast Family history of coronary artery disease Family history of congestive heart failure Father Family history of pancreatic cancer Unknown High cholesterol Asthma Depression Social History Social History Smoking status: Never smoker Alcohol intake: current Exam Narrative: EXAMINATION OF ORGAN SYSTEMS/BODY AREAS: Constitutional: Vital signs per nursing GENERAL:No acute distress, non-toxic appearing. HEAD: Normal with no signs of head trauma. EYES: EOMI, conjunctiva normal ENT: Hearing grossly intact LUNGS: Nonlabored breathing. HEART: Regular rate and rhythm ABD: Soft, nontender to palpation BACK: Some slight tenderness to the right mid back, small bruise EXT: Normal range of motion SKIN: No rashes or lesions. NEURO: Alert. No gross focal sensory or strength deficits. PSYCH: Normal affect Course Vital Signs Vital signs: Vital Signs Temperature 98.3 F 06/18/25 09:55 Pulse Rate 93 06/18/25 09:55 Respiratory Rate 20 06/18/25 09:55 Blood Pressure 167/90 H 06/18/25 09:55 Pulse Oximetry 100 06/18/25 09:55 Oxygen Delivery Room Air 06/18/25 09:55 Temperature 97.6 F 06/18/25 12:21 Pulse Rate 86 06/18/25 12:21 Respiratory Rate 19 06/18/25 12:21 Blood Pressure 148/75 H 06/18/25 12:21 Pulse Oximetry 98 06/18/25 12:21 Oxygen Delivery Room Air 06/18/25 09:55 MDM MDM Narrative Medical decision making narrative: Patient presented to the ED with complaint of right flank pain and vomiting. Vitals were within acceptable limits. Physical exam revealed soft abdomen that is nontender, full slight tenderness to the right mid back with a slight bruise. IV access was established by nursing staff. Patient was given zofran, famotidine. CBC, BMP, lipase, LFTs, bilirubin and alk phos were obtained. Labs were pertinent for elevated WBCs. Decision was made to obtain a CT-abdomen to evaluate for acute abdominal process. CT-abdomen per radiology interpretation possible colitis was unremarkable. On reevaluation, the patient states that they are feeling much better. There were no witnessed episodes of vomiting in the emergency department. They are not complaining of any new abdominal pain. Repeat examination did not show any significant guarding or rebound. No new tenderness. At this time I do not feel there is any further emergent treatment to be provided. The patient was given strict return precautions, if they are to develop any worsening abdominal pain, vomiting, or blood in the vomit they are to return to the emergency department immediately. Patient verbally acknowledges understanding these directions. The patient was informed of the above diagnostic test findings. No further workup is necessary at this time. They will be discharged home with prescriptions. They were advised to follow-up with their PCP as well as follow-up to Urology and GI in 2 days. The patient feels that this is appropriate medical decision making and verbalizes an understanding of the discharge instructions. Differential Diagnosis Differential Diagnosis: MSK, kidney stone, pyelonephritis, SBO, etc. Lab Data 06/18/25 10:28 06/18/25 10:28 Labs: Lab Results 06/18/25 06/18/25 Range/Units 10:26 10:28 WBC 14.7 H (4.5-10.0) K/mm3 RBC 4.73 (4.2-5.4) M/mm3 Hgb 15.3 H (12.0-15.0) g/dL Hct 45.3 (37.0-47.0) % MCV 95.8 (80-100) fl MCH 32.3 (26-34) pg MCHC 33.8 (32-36) g/dl RDW 12.9 (11.5-14.5) % Plt Count 349 (150-375) k/mm3 MPV 8.3 (7.4-10.4) fl Immature Gran % (Auto) 0.3 (0-0.5) % Neut % (Auto) 79.1 H (45.5-73.1) % Lymph % (Auto) 11.3 L (18.3-44.2) % [place] % (Auto) 7.5 (2.6-8.5) % Eos % (Auto) 1.3 (0-4.4) % Baso % (Auto) 0.5 (0.2-1.2) % Lymph # (Auto) 1.66 (0.9-3.2) K/mm3 [place] # (Auto) 1.1 H (0.1-0.6) K/mm3 Eos # (Auto) 0.2 (0-0.3) K/mm3 Baso # (Auto) 0.1 (0.0-0.1) K/mm3 Abs Immat Gran (auto) 0.04 H (0.00-0.031) K/mm3 Absolute Neuts (auto) 11.7 H (1.3-6.7) K/mm3 Absolute Nucleated RBC 0.000 (0.0-0.012) K/mm3 Nucleated RBC % 0.0 (0.0-0.2) % Sodium 139 (137-145) mmol/L Potassium 4.1 (3.4-5.0) mmol/L Chloride 106 (98-107) mmol/L Carbon Dioxide 23 (22-30) mmol/L Anion Gap 10 (4-12) mmol/L BUN 28 H (7-17) mg/dL Creatinine 0.86 (0.7-1.0) mg/dL Estim Creat Clear Calc 58 ml/min Estimated GFR > 60 (59 - ) Glucose 118 H (65-110) mg/dL Calcium 10.6 H (8.4-10.2) mg/dL Total Bilirubin 0.8 (0.2-1.3) mg/dL AST 37 H (14-36) U/L ALT 39 H (6-35) U/L Alkaline Phosphatase 69 (38-126) U/L Total Protein 8.3 H (6.3-8.2) g/dL Albumin 5.0 (3.5-5.1) g/dL Lipase 145 (23-300) U/L Urine Color Yellow (Yellow) Urine Appearance Clear (Clear) Urine pH 5.5 (5.0-9.0) Ur Specific [place] 1.026 (1.001-1.035) Urine Protein Negative (Negative) mg/dL Urine Glucose (UA) Negative (Negative) mg/dL Urine Ketones Negative (Negative) mg/dL Ur Blood (Man) Negative (Negative) Urine Nitrate Negative (Negative) Urine Bilirubin Negative (Negative) Urine Urobilinogen 0.2 (<2.0) mg/dL Leukocyte Esterase Rfl Negative (Negative) GALLO/UL Imaging Data Radiologist's impression: ITS Impressions Abdomen/Pelvis CT 06/18/25 11:50 IMPRESSION: 1. 2 mm stone right kidney. No hydronephrosis. 2. Mild colitis not excluded. 3. No other acute abnormality. Discharge Plan Discharge Clinical Impression: Colitis Patient Disposition: Home Condition: Stable Instructions: Colitis (ED), Thoracic Back Strain (ED) Additional Instructions: Please follow up with your doctor; you can always return for any further issues. Patient Language: Sami Prescriptions: New methocarbamol 750 mg tablet 750 mg PO TID PRN (Reason: muscle spasm) Qty: 30 0RF dicyclomine 20 mg tablet 20 mg PO TID PRN (Reason: abdominal pain) Qty: 30 0RF lidocaine 5 % adhesive patch,medicated 1 patch topical DAILY Qty: 15 0RF Rx Instructions: leave on most painful area for up to 12 hrs ondansetron 4 mg tablet,disintegrating 4 mg PO Q8H PRN (Reason: nausea and vomiting) Qty: 10 0RF No Action fluticasone propionate [Flonase Allergy Relief] 50 mcg/actuation spray,suspension 1 spray NASAL DAILY alosetron [Lotronex] 1 mg tablet 1 mg PO DAILY levothyroxine [Synthroid] 200 mcg tablet 200 mcg PO DAILY Ozempic 2 mg/dose (8 mg/3 mL) pen injector 2 mg subcut WEEKLY atorvastatin 40 mg tablet 40 mg PO DAILY losartan-hydrochlorothiazide 100-25 mg tablet 1 tablet PO DAILY cyclosporine 0.05 % dropperette 1 drp EACH EYE BID albuterol sulfate [ProAir HFA] 90 mcg/actuation HFA aerosol inhaler 1 inh INHALATION Q4-6H PRN (Reason: shortness of breath or wheezing) Qty: 8.5 5RF magnesium carb,citrate,oxide PO tramadol 50 mg tablet 50 mg PO Q6-8H PRN (Reason: pain) Qty: 30 0RF cholecalciferol (vitamin D3) PO Trelegy Ellipta 100-62.5-25 mcg blister with device 1 inh inhalation Q24H Qty: 60 11RF Rx Instructions: Rinse mouth and spit after each use. azelastine 137 mcg (0.1 %) spray,non-aerosol 1 spray intranasal Q12H Qty: 30 11RF Rx Instructions: administer into each nostril montelukast 10 mg tablet See Rx Instructions .ROUTE .COMPLEX Qty: 30 5RF Dose Instruction: TAKE 1 TABLET BY MOUTH EVERY DAY IN THE EVENING Rx Instructions: TAKE 1 TABLET BY MOUTH EVERY DAY IN THE EVENING Follow-up/Referrals: Parmjit Sanderson MD [Physician, Urology] - 3 Days Ralph Davalos MD [Physician, Gastroenterology] - 3 Days Chinyere,Rocio Peralta MD [Primary Care Provider, Unknown]
== END 2025-06-18 12:41 | disposition home or self-care (01) ==
PROVIDERS: Emergency Provider Emergency Medicine; PCP Internal Medicine
DX: K52.9 Noninfective gastroenteritis and colitis, unspecified (principal); J44.9 Chronic obstructive pulmonary disease, unspecified; E78.00 Pure hypercholesterolemia, unspecified; E06.3 Autoimmune thyroiditis; E11.9 Type 2 diabetes mellitus without complications; K58.9 Irritable bowel syndrome, unspecified; M17.9 Osteoarthritis of knee, unspecified; M19.079 Primary osteoarthritis, unspecified ankle and foot; G47.33 Obstructive sleep apnea (adult) (pediatric); Z90.710 Acquired absence of both cervix and uterus; N20.0 Calculus of kidney; Z79.85 Long-term (current) use of injectable non-insulin antidiabetic drugs; Z79.899 Other long term (current) drug therapy; I51.7 Cardiomegaly
CPT/HCPCS: 36415; 74177; 80053; 81003; 83690; 85025; 93005; 96374; 96375; 99284; J2270; J2405; Q9967

== ENCOUNTER 2025-06-20 13:22 | Emergency (ER) | payer BC, SELFPAY ==
--- NOTE | ~2025-06-20 | CT_ITS ---
EXAMINATION:CT diagnostic chest wo con DATE: 06/20/2025 15:03 INDICATION: Possible right mid rib fracture. TECHNIQUE: Computed tomography (CT) of the chest was performed without intravenous contrast. The dose-length product (DLP) was 222.27 mGy-cm. COMPARISON: None. FINDINGS: No displaced rib fracture seen. The lungs are clear with no consolidation effusion or pneumothorax or hemothorax. Heart and great vessels normal size. No significant pericardial effusion or bulky lymphadenopathy. Central large airways are patent. No acute process seen in the visualized portions of the upper abdomen or extrathoracic soft tissues. IMPRESSION: No displaced fracture lucency or gross acute intrathoracic abnormality seen on this noncontrast exam. Reviewed, dictated and finalized at location A. ECRAFT PROFESSOR IMPRESSION: No displaced fracture lucency or gross acute intrathoracic abnormal ity seen on this noncontrast exam.
[2025-06-20 13:30] VITALS: BP 177/81; PULSE 83; RESP 16; TEMP 37; O2SAT 97
--- NOTE | 2025-06-20 13:41 | ECG_ITS ---
Test Date: 2025-06-20 13:52:20 Measurements Intervals [place] Rate: 82 P: 68 NC: 166 QRS: 0 QRSD: 91 T: 60 QT: 354 QTc: 415 Interpretive Statements SINUS RHYTHM MINIMAL Q WAVES- HIGH LATERAL LEADS BASELINE ARTIFACT- II, III, AVF BORDERLINE ECG Compared to ECG 06/18/2025 10:37:08 Left ventricular hypertrophy no longer present Electronically Signed On 06-20-2025 13:57:49 [employer] SUPER[employer] by Alex Harley D.O.
[2025-06-20] MEDS: KETOROLAC 30 MG/ML VIAL (*BKC) IM (14:48)
--- NOTE | 2025-06-20 14:54 | ED.BACK ---
HPI - Back Pain/Injury General Chief Complaint: Back Pain/Injury Stated Complaint: back pain Time Seen by Provider: 06/20/25 14:34 Source: patient Mode of arrival: ambulatory Limitations: no limitations History of Present Illness HPI Narrative: This is a 69-year-old female with history of diabetes, hypertension, hyperlipidemia who presents to the ED for back pain. Patient states that a few days ago, she was shoveling snow. Two days ago, she bent forward and felt a pain in her right mid upper back. She has seen in the ED here and was diagnosed with colitis. She was given a muscle relaxer, Lidoderm patches it was doing better yesterday. Today, she bent over to pick something up and have similar pain prompting her to come back to the ED. Denies numbness, tingling, fevers, chills. Pain is worse with deep inspiration Related Data Home Medications ?Medication ?Instructions ?Recorded ?Confirmed ?Last Taken ?Type alosetron 1 mg tablet (Lotronex) 1 mg PO DAILY 07/11/19 08/13/23 Unknown History fluticasone propionate 50 1 spray intranasal DAILY 07/11/19 08/13/23 Unknown History mcg/actuation nasal spray,suspension (Flonase Allergy Relief) levothyroxine 200 mcg tablet 200 mcg PO DAILY 07/11/19 08/13/23 Unknown History (Synthroid) cholecalciferol (vitamin D3) PO 01/17/20 08/13/23 Unknown History magnesium carb,citrate,oxide PO 03/30/24 Unknown History atorvastatin 40 mg tablet 40 mg PO DAILY 09/22/24 09/22/24 Unknown History cyclosporine 0.05 % eye drops in a 1 drp EACH EYE BID 09/22/24 09/22/24 Unknown History dropperette losartan 100 1 tablet PO DAILY 09/22/24 09/22/24 Unknown History mg-hydrochlorothiazide 25 mg tablet semaglutide 2 mg/dose (8 mg/3 mL) 2 mg subcut WEEKLY 09/22/24 09/22/24 Unknown History subcutaneous pen injector (Ozempic) Allergies Allergy/AdvReac Type Severity Reaction Status Date / Time amlodipine Allergy Unknown Swelling Verified 06/20/25 13:24 erythromycin base Allergy Unknown Rash Verified 06/20/25 13:24 Sulfa (Sulfonamide Allergy Unknown unk Verified 06/20/25 13:24 Antibiotics) metformin AdvReac Unknown Abdominal Verified 06/20/25 13:24 Pain Review of Systems Review of Systems: Gen.: Denies fevers or chills Eyes: Denies eye pain or visual change ENT: Denies congestion Respiratory: Denies shortness of breath or cough CV: Denies chest pain or palpitations GI: Denies abdominal pain nausea, emesis or diarrhea denies burning, urgency, frequency or hematuria Musculoskeletal: As per HPI Neuro: Denies numbness, tingling, weakness or focal weakness Skin: Denies rash Except as documented, all other systems reviewed and negative [facility] Past Medical History Medical History Degenerative joint disease of knee Arthritis, midfoot Mobility poor Left foot pain Tear of meniscus of knee Right knee injury Rupture of proximal biceps tendon Right knee pain Knee injury Biceps tendonitis Hypothyroidism High cholesterol Shortness of breath Calcific tendonitis of right shoulder Diabetes Right shoulder pain JAMAL (obstructive sleep apnea) Shingles IBS (irritable bowel syndrome) Alvaro's thyroiditis Sleep apnea Obesity Asthma Chronic obstructive pulmonary disease, unspecified Essential hypertension JAMAL on CPAP Surgical History Surgical History H/O hernia repair H/O: hysterectomy Family History Family History Sibling Hypertension Mother Family history of chronic obstructive pulmonary disease Family history of malignant neoplasm of breast Family history of coronary artery disease Family history of congestive heart failure Father Family history of pancreatic cancer Unknown High cholesterol Asthma Depression Social History Social History Smoking status: Never smoker Alcohol intake: current Exam Narrative: APPEARANCE: No acute distress, nontoxic, resting in bed EYES: EOMI HEENT: Normocephalic, atraumatic, OMM RESPIRATORY: No respiratory distress Clear to auscultation bilaterally with no rhonchi wheezing or rales. CARDIOVASCULAR: Regular rate and rhythm without murmurs rubs or gallops. Tenderness palpation over the right mid thoracic ribs with radiation around the right sided chest wall. ABDOMINAL: Soft, nontender, nondistended, no rebound or guarding MUSCULOSKELETAl: Moves all extremities. No clubbing, cyanosis or edema. NEURO: Awake and alert. Following commands, speech normal, no focal deficits SKIN:: Warm, dry. No rashes lesions or abrasions PSYCHIATRIC: Normal affect/mood, Course Vital Signs Vital signs: Vital Signs Temperature 98.6 F 06/20/25 13:30 Pulse Rate 83 06/20/25 13:30 Respiratory Rate 16 06/20/25 13:30 Blood Pressure 177/81 H 06/20/25 13:30 Pulse Oximetry 97 06/20/25 13:30 Temperature 98.4 F 06/20/25 16:38 Pulse Rate 80 06/20/25 16:38 Respiratory Rate 17 06/20/25 16:38 Blood Pressure 166/92 H 06/20/25 16:38 Pulse Oximetry 99 06/20/25 16:38 MDM MDM Narrative Medical decision making narrative: 69-year-old female Presenting for right upper back pain. On initial evaluation patient was in no acute distress afebrile, hemodynamic stable. Differentials include but are not limited to: Fracture, sprain, strain, contusion, rib fracture, low suspicion for cauda equina or epidural abscess Notable exam findings: Tenderness palpation over the right posterior mid rib with extension to the lateral aspect of the mid rib CT chest showed no evidence of fractures. Patient was given Toradol with improvement of her symptoms. Suspect that she has a musculoskeletal strain. Given worsening symptoms, she will be given a prescription for [place]. She was advised to continue to take her medications as previously prescribed. She was advised follow-up with her PCP in the next week for re-evaluation. Patient was agreeable to this plan. Given strict return precautions. Differential Diagnosis Differential Diagnosis: Fracture, sprain, strain, contusion, rib fracture, low suspicion for cauda equina or epidural abscess Lab Data Labs: Lab Results 06/20/25 Range/Units 13:33 POC Capillary Glucose 147 H (65-105) mg/dl Imaging Data Radiologist's impression: ITS Impressions Chest CT 06/20/25 15:15 IMPRESSION: No displaced fracture lucency or gross acute intrathoracic abnormality seen on this noncontrast exam. Discharge Plan Discharge Clinical Impression: Acute right-sided thoracic back pain Patient Disposition: Home Condition: Stable Instructions: Antibiotic Form, Thoracic Back Strain (ED) Additional Instructions: Take medications as previously prescribed. Take [place] as prescribed. Follow-up with your PCP in the next week for re-evaluation. Return to the ED for any new or worsening symptoms. Patient Language: Hebrew Prescriptions: New hydrocodone-acetaminophen 5-325 mg tablet 1 tablet PO Q8H PRN (Reason: pain) Qty: 12 0RF No Action fluticasone propionate [Flonase Allergy Relief] 50 mcg/actuation spray,suspension 1 spray NASAL DAILY alosetron [Lotronex] 1 mg tablet 1 mg PO DAILY levothyroxine [Synthroid] 200 mcg tablet 200 mcg PO DAILY Ozempic 2 mg/dose (8 mg/3 mL) pen injector 2 mg subcut WEEKLY atorvastatin 40 mg tablet 40 mg PO DAILY losartan-hydrochlorothiazide 100-25 mg tablet 1 tablet PO DAILY cyclosporine 0.05 % dropperette 1 drp EACH EYE BID albuterol sulfate [ProAir HFA] 90 mcg/actuation HFA aerosol inhaler 1 inh INHALATION Q4-6H PRN (Reason: shortness of breath or wheezing) Qty: 8.5 5RF magnesium carb,citrate,oxide PO tramadol 50 mg tablet 50 mg PO Q6-8H PRN (Reason: pain) Qty: 30 0RF cholecalciferol (vitamin D3) PO methocarbamol 750 mg tablet 750 mg PO TID PRN (Reason: muscle spasm) Qty: 30 0RF dicyclomine 20 mg tablet 20 mg PO TID PRN (Reason: abdominal pain) Qty: 30 0RF lidocaine 5 % adhesive patch,medicated 1 patch topical DAILY Qty: 15 0RF Rx Instructions: leave on most painful area for up to 12 hrs ondansetron 4 mg tablet,disintegrating 4 mg PO Q8H PRN (Reason: nausea and vomiting) Qty: 10 0RF Trelegy Ellipta 100-62.5-25 mcg blister with device 1 inh inhalation Q24H Qty: 60 11RF Rx Instructions: Rinse mouth and spit after each use. azelastine 137 mcg (0.1 %) spray,non-aerosol 1 spray intranasal Q12H Qty: 30 11RF Rx Instructions: administer into each nostril montelukast 10 mg tablet See Rx Instructions .ROUTE .COMPLEX Qty: 30 5RF Dose Instruction: TAKE 1 TABLET BY MOUTH EVERY DAY IN THE EVENING Rx Instructions: TAKE 1 TABLET BY MOUTH EVERY DAY IN THE EVENING Follow-up/Referrals: Chinyere,Rocio Peralta MD [Primary Care Provider, Unknown]
--- OUTSIDE RECORDS SUMMARY | 2025-06-20 15:27 | XMS_ITS | Encounter Summary ---
Author Organization [facility] Healthcare Address [address] [place] [address] Care Team Providers Care Cuff Slitter Name Role Phone Rocio Whitlock MD Primary Care Provider [phone] Beverly Muhammad MD Unavailable [phone] Nanda Toure MD Unavailable [phone] Encounter Details Date Type Department Care Team (Late st Contact Info) Description 10/19/2020 Telephone [facility] [address] [place] [address] Lizbeth Lee, RT Social History Tobacco Use Types Packs/Day Years Used Date Smoking Tobacco: Never Smokeless Tobacco: Never Alcohol Use Standard Drinks/Week Comments Yes 0 (1 standard drink = 0.6 oz pur e alcohol) RARELY Comments No Sex and Gender Information Value Date Recorded Sex Assigned at Not on file Legal Sex Female 8:00 PM BAND SPLITTER Gender Identity Not on file Sexual Orientation Not on file documented as of this encounter Plan of Treatment Not on file documented as of this encounter Visit Diagnoses Not on filedocumented in this encounter Care Teams Cuff Slitter Relationship Specialty Start Date End Date Rocio Whitlock MD [address] [place] [id number] PCP - General 02/04/17 Beverly Muhammad MD [address] [place] [address] Referring Physician Gynecology 01/31/20 Nanda Toure MD [address] [place] [address] Surgeon Vascular Surgery 11/14/22 documented as of this encounter
--- OUTSIDE RECORDS SUMMARY | 2025-06-20 15:28 | XMS_ITS | Clinical Summary ---
Author Organization [facility] Address [address] [place] [address] Care Team Providers Care Medical Practice Assistant Name Role Phone Rocio Whitlock MD Primary Care Provider Source Comments [facility],non-owned Affiliates and Associated Physician Practices is amultiple site organization consisting of ambulatory clinics and hospital sitesin [place], [place], [place] and [place]. This disclosure is being madepursuant to the Care Everywhere program and may not contain all information available regarding this patient. 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 PARTS ROOM ASSISTANT Gender Identity Not on file Sexual Orientation Not on file Last Filed Vital Signs Vital Sign Reading Time Taken Comments Blood Pressure 154/75 09/11/2022 12:09 PM PARTS ROOM ASSISTANT Pulse 68 09/11/2022 12:09 PM PARTS ROOM ASSISTANT Temperature 36.9 C (98.5 F) 09/11/2022 12:09 PM PARTS ROOM ASSISTANT Respiratory Rate - - Oxygen Saturation 96% 09/11/2022 12:09 PM PARTS ROOM ASSISTANT Inhaled Oxygen Concentration - - Weight 100.2 kg (221 lb) 09/11/2022 12:09 PM PARTS ROOM ASSISTANT Height 160 cm (5' 3) 09/11/2022 12:09 PM PARTS ROOM ASSISTANT Body Mass Index 39.15 09/11/2022 12:09 PM PARTS ROOM ASSISTANT Plan of Treatment Health Maintenance Due Date [...] to complete this topic Insurance Care Teams Medical Practice Assistant Relationship Specialty Start Date End Date Rocio Whitlock MD [address] [place] [address] [phone] PCP - General 09/11/22
--- OUTSIDE RECORDS SUMMARY | 2025-06-20 15:28 | XMS_ITS | Clinical Summary ---
Author Organization [place] [id number] [facility] [place] [address] [place] [address] Care Team Providers Care Window Draper Name Role Phone Rocio Whitlock MD Primary Care Provider [phone] Beverly Muhammad MD Unavailable [phone] Nanda Toure MD Unavailable [phone] Allergies Active Allergy Reactions Criticality Noted Date [...] on file Legal Sex Female 8:00 PM REGISTERED RADIOLOGIC TECHNOLOGIST Gender Identity Not on file Sexual Orientation [...] 36.6 C (97.9 F) 05/27/2024 9:58 AM REGISTERED RADIOLOGIC TECHNOLOGIST Respiratory Rate 16 05/27/2024 9:58 AM REGISTERED RADIOLOGIC TECHNOLOGIST Oxygen Saturation 95% 05/27/2024 9:58 AM REGISTERED RADIOLOGIC TECHNOLOGIST Inhaled Oxygen Concentration - - Weight 93 [...] 12/26/2031 12/25/2021 Medical Devices Implanted Type Area Care Coordinator Device Identifier Shelf Expiration Date Model / Serial / Lot [employer]/C R Bard [id number] Monofilament Soft Lightweight Low Profile Square - Sn/A - [id number] Implanted:Qty: 1 on 04/23/2023 by Carlitos Paul MD at [facility] Mesh N/A: Abdomen [employer]/C R Bard 10/31/2026 [id number] / N/A / [id number] Procedures Procedure Name Priority Date/Time Associated Diagnosis [...] Bone mineral density was performed on a HoloSolFocus Discovery Densitometer. Based on machine cross-calibration and [...] by the International Society of Clinical Densitometry. [id number] Patricia Trejo NP IMG DXA PROCEDURES Final [...] compared to prior imaging studies performed at [facility] on 11/24/2022, 04/16/2023 and 11/26/2023. There are [...] compared to prior imaging studies performed at [facility] on 11/24/2022, 04/16/2023 and 11/26/2023. There are [...] A1C, POC 6.6(H) 4.0 - 6.0 % [facility] Est Average Gluc POC 143 mg/dL [facility] Comment: The ADA recommends reporting an estimated Average Glucose (eAG) with all Hemoglobin A1c results using the equation derived from a study of 507 normal and diabetic adults. Minority populations were underrepresented and children were not included. (Diabetes Care 31:0465-7655, 2008). The eAG is not equivalent to a fasting glucose. Blood specimen (specimen) 03/13/2020 10:08 AM CDT 03/13/2020 10:08 AM CDT [facility] Sarbjit Rahman MD POINT OF CARE TEST ORDER CLARK Final Result [facility] [place] [address] from Last 3 Months or Most Recently Relevant to Health Maintenance Insurance [facility] MEDICARE [facility] FEDERAL MEDICARE Care Teams Window Draper Relationship Specialty Start Date End Date Rocio Whitlock MD [address] [facility] [address] [place] [address] PCP - General 02/04/17 Beverly Muhammad MD [address] [place] [address] Referring Physician Gynecology 01/31/20 Nanda Toure MD [address] [place] [address] Surgeon Vascular Surgery 11/14/22
[2025-06-20 16:38] VITALS: BP 166/92; PULSE 80; RESP 17; TEMP 36.9; O2SAT 99
--- OUTSIDE RECORDS SUMMARY | 2025-06-20 17:34 | XMS_ITS | Clinical Summary ---
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 Gender Identity Not on file Sexual Orientation [...] 36.6 C (97.9 F) 05/27/2024 9:58 AM CABLE CUTTER AND SWAGER Respiratory Rate 16 05/27/2024 9:58 AM CABLE CUTTER AND SWAGER Oxygen Saturation 95% 05/27/2024 9:58 AM CABLE CUTTER AND SWAGER Inhaled Oxygen Concentration - - Weight 93 [...] 12/26/2031 12/25/2021 Medical Devices Implanted Type Area Land Leases And Rentals Manager Device Identifier Shelf Expiration Date Model / Serial / Lot [employer]/C R Bard [id number] Bard [id number] Monofilament Soft Lightweight Low Profile Square - Sn/A - [id number] Implanted:Qty: 1 on 04/23/2023 by Carlitos Paul MD at [facility] Mesh N/A: Abdomen [employer]/C R Bard 10/31/2026 [id number] / N/A / [id number] Procedures Procedure Name Priority Date/Time Associated Diagnosis [...] Bone mineral density was performed on a [employer] Discovery Densitometer. Based on machine cross-calibration and [...] by the International Society of Clinical Densitometry. [id number] Patricia Trejo NP IMG DXA PROCEDURES Final [...] compared to prior imaging studies performed at [facility] on 11/24/2022, 04/16/2023 and 11/26/2023. There are [...] compared to prior imaging studies performed at [facility] on 11/24/2022, 04/16/2023 and 11/26/2023. There are [...] A1C, POC 6.6(H) 4.0 - 6.0 % [facility] Est Average Gluc POC 143 mg/dL [facility] Comment: The ADA recommends reporting an estimated Average Glucose (eAG) with all Hemoglobin A1c results using the equation derived from a study of 507 normal and diabetic adults. Minority populations were underrepresented and children were not included. (Diabetes Care 31:0589-5486, 2008). The eAG is not equivalent to a fasting glucose. Blood specimen (specimen) 03/13/2020 10:08 AM CDT 03/13/2020 10:08 AM CDT [facility] Sarbjit Rahman MD POINT OF CARE TEST ORDER CLARK Final Result [facility] One [facility] Department [place] [address] from Last 3 Months or Most Recently Relevant to Health Maintenance Insurance [employer] [facility] MEDICARE [facility] FEDERAL MEDICARE Care Teams Vice President Relationship Specialty Start Date End Date Rocio Whitlock MD [address] [facility] [address] [place] [address] PCP - General 02/04/17 Beverly Muhammad MD [address] [place] [address] Referring Physician Gynecology 01/31/20 Nanda Toure MD [address] [place] [address] Surgeon Vascular Surgery 11/14/22
--- OUTSIDE RECORDS SUMMARY | 2025-06-20 17:34 | XMS_ITS | Clinical Summary ---
Author Organization [facility] Address [address] [facility] [place] [address] Care Team Providers Care Workflow Developer Name Role Phone Rocio Whitlock MD Primary Care Provider Source Comments [facility],non-owned Affiliates and Associated Physician Practices is amultiple site organization consisting of ambulatory clinics and hospital sitesin [place], [place], [place] and [place]. This disclosure is being madepursuant to the Care Everywhere program and may not contain all information available regarding this patient. Last updated 18.[facility] Allergies Active Allergy Reactions Criticality Noted Date [...] fluticasone propionate (Flonase) 50 MCG/ACT nasal spray [place] 1 (one) spray into each nostril once [...] on file Legal Sex Female 5:02 AM CHANGE CONTROL COORDINATOR Gender Identity Not on file Sexual Orientation Not on file Last Filed Vital Signs Vital Sign Reading Time Taken Comments Blood Pressure 154/75 09/11/2022 12:09 PM CHANGE CONTROL COORDINATOR Pulse 68 09/11/2022 12:09 PM CHANGE CONTROL COORDINATOR Temperature 36.9 C (98.5 F) 09/11/2022 12:09 PM CHANGE CONTROL COORDINATOR Respiratory Rate - - Oxygen Saturation 96% 09/11/2022 12:09 PM CHANGE CONTROL COORDINATOR Inhaled Oxygen Concentration - - Weight 100.2 kg (221 lb) 09/11/2022 12:09 PM CHANGE CONTROL COORDINATOR Height 160 cm (5' 3) 09/11/2022 12:09 PM CHANGE CONTROL COORDINATOR Body Mass Index 39.15 09/11/2022 12:09 PM CHANGE CONTROL COORDINATOR Plan of Treatment Health Maintenance Due Date [...] to complete this topic Insurance Care Teams Workflow Developer Relationship Specialty Start Date End Date Rocio Whitlock MD [address] [place] [address] [phone] PCP - General 09/11/22
--- OUTSIDE RECORDS SUMMARY | 2025-06-20 17:34 | XMS_ITS | Encounter Summary ---
Author Organization [facility] Address [address] [place] [address] Care Team Providers Care Yarder Boss Name Role Phone Rocio Whitlock MD Primary Care Provider [phone] Beverly Muhammad MD Unavailable Nanda Toure MD Unavailable [phone] Encounter Details Date Type Department Care Team (Late st Contact Info) Description 10/19/2020 Telephone [facility] [address] [place] [address] Lizbeth Lee, RT Social History Tobacco Use Types Packs/Day Years Used Date Smoking Tobacco: Never Smokeless Tobacco: Never Alcohol Use Standard Drinks/Week Comments Yes 0 (1 standard drink = 0.6 oz pur e alcohol) RARELY Comments No Sex and Gender Information Value Date Recorded Sex Assigned at Not on file Legal Sex Female 8:00 PM PITCH FILLER Gender Identity Not on file Sexual Orientation Not on file documented as of this encounter Plan of Treatment Not on file documented as of this encounter Visit Diagnoses Not on filedocumented in this encounter Care Teams Yarder Boss Relationship Specialty Start Date End Date Rocio Whitlock MD [address] [place] [id number] PCP - General 02/04/17 Beverly Muhammad MD [address] [place] [address] Referring Physician Gynecology 01/31/20 Nanda Toure MD [address] [place] [address] Surgeon Vascular Surgery 11/14/22 documented as of this encounter
--- OUTSIDE RECORDS SUMMARY | 2025-06-20 17:34 | XMS_ITS | Clinical Summary ---
Author Organization [employer] [facility] Address [address] [place] [address] Care Team Providers Care Acid Purifier Name Role Phone Unavailable Primary Care Provider Unavailabl e Social History Tobacco Use Types Packs/Day Years Used Date Smoking Tobacco: Never Assessed Comments Unknown Sex and Gender Information Value Date Recorded Sex Assigned at Not on file Legal Sex Female 3:38 AM EDT Gender Identity Not on file Sexual Orientation Not on file Plan of Treatment Not on file Medical Devices Not on file
== END 2025-06-20 16:43 | disposition home or self-care (01) ==
PROVIDERS: Emergency Provider Student in an Organized Health Care Education/Training Program; PCP Internal Medicine
DX: M54.6 Pain in thoracic spine (principal); I10 Essential (primary) hypertension; E78.00 Pure hypercholesterolemia, unspecified; E11.9 Type 2 diabetes mellitus without complications; E06.3 Autoimmune thyroiditis; J44.9 Chronic obstructive pulmonary disease, unspecified; G47.33 Obstructive sleep apnea (adult) (pediatric); K58.9 Irritable bowel syndrome, unspecified; M17.9 Osteoarthritis of knee, unspecified; M19.079 Primary osteoarthritis, unspecified ankle and foot; Z90.710 Acquired absence of both cervix and uterus; Z79.85 Long-term (current) use of injectable non-insulin antidiabetic drugs; Z79.899 Other long term (current) drug therapy
CPT/HCPCS: 71250; 82948; 93005; 96372; 99284; J1885